=== PATIENT | male | born 1970 | race African-American/Black ===

== ENCOUNTER 2021-01-27 12:31 | Outpatient (CLI) | payer MEDICARE, MEDICAID ==
[2021-01-28 16:49] LABS: SARS-CoV-2 PCR by NAA Not Detected (NotDetected)
== END 2021-01-27 12:32 | disposition home or self-care (01) ==
LOC: LABBT 12:31
PROVIDERS: ATTEND Internal Medicine
DX: Z01.812 Encounter for preprocedural laboratory examination (principal); Z12.11 Encounter for screening for malignant neoplasm of colon; K59.00 Constipation, unspecified; Z20.822 Contact with and (suspected) exposure to COVID-19
CPT/HCPCS: U0003; U0005

== ENCOUNTER 2021-02-06 13:06 | Outpatient (CLI) | payer MEDICARE, MEDICAID ==
[2021-02-06 23:46] LABS: SARS-CoV-2 PCR by NAA Not Detected (NotDetected)
== END 2021-02-06 13:07 | disposition home or self-care (01) ==
LOC: LABBT 13:06
PROVIDERS: ATTEND Internal Medicine
DX: Z01.812 Encounter for preprocedural laboratory examination (principal); Z20.822 Contact with and (suspected) exposure to COVID-19
CPT/HCPCS: U0003; U0005

== ENCOUNTER 2021-02-09 06:27 | Day surgery (SDC) | payer MEDICARE, MEDICAID ==
[2021-02-08 12:59] VITALS: BMI 21.2
[2021-02-09] MEDS ORDERED: PROPOFOL 200 MG/20 ML VIAL ONE (09:00)
== END 2021-02-09 10:35 | disposition home or self-care (01) ==
LOC: SDC 06:27
PROVIDERS: ATTEND Internal Medicine
PROC: 0DBN8ZX Excision of Sigmoid Colon, Via Natural or Artificial Opening Endoscopic, Diagnostic (ICD-10-PCS; principal; 2021-02-09)
PROC: 0DBL8ZX Excision of Transverse Colon, Via Natural or Artificial Opening Endoscopic, Diagnostic (ICD-10-PCS; 2021-02-09)
DX: Z12.11 Encounter for screening for malignant neoplasm of colon (principal); D12.3 Benign neoplasm of transverse colon; D12.5 Benign neoplasm of sigmoid colon; G40.909 Epilepsy, unspecified, not intractable, without status epilepticus; Z79.899 Other long term (current) drug therapy
CPT/HCPCS: 88305; J2704

== ENCOUNTER 2024-04-30 06:06 | Day surgery (SDC) | payer MEDICARE, MEDICAID ==
[2024-04-29 11:12] VITALS: BMI 24.3
[2024-04-30] MEDS ORDERED: PROPOFOL 40 ML ONE (06:47)
[2024-04-30] MEDS ORDERED: Lidocaine 2% PF 5 ML VIAL ONE (06:47)
== END 2024-04-30 09:22 | disposition home or self-care (01) ==
LOC: SDC 06:06
PROVIDERS: ATTEND Internal Medicine
PROC: 0DJD8ZZ Inspection of Lower Intestinal Tract, Via Natural or Artificial Opening Endoscopic (ICD-10-PCS; principal; 2024-04-30)
DX: K64.8 Other hemorrhoids (principal); F31.9 Bipolar disorder, unspecified; Z86.0100 Personal history of colon polyps, unspecified; Z90.49 Acquired absence of other specified parts of digestive tract; Z79.899 Other long term (current) drug therapy
CPT/HCPCS: 45378; J2704